=== PATIENT | male | born 2005 | race Caucasian/White ===

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

== ENCOUNTER → 2024-10-06 | Outpatient (CLI) | payer SELFPAY ==
[~2024-10-06] MED LIST changes: +ONDANSETRON HYDR4 MG PO; +PANTOPRAZOLE SO40 MG PO
== END ==
LOC: RAD 16:33
DX: S67.192A Crushing injury of right middle finger, initial encounter (principal)

== ENCOUNTER → 2024-10-11 | Outpatient (CLI) | payer SELFPAY | LOC: RAD 07:57 | DX: S67.192D Crushing injury of right middle finger, subsequent encounter (principal) ==